=== PATIENT | female | born 1945 | race Hispanic/Latino ===

== ENCOUNTER 2022-05-19 09:13 | Observation (INO) | payer OTHER ==
[2022-05-19 10:08] LABS: #Eosinphils 0.2 10x3/uL (0.0-0.5); #Monocytes 0.6 10x3/uL (0.0-1.1); #Neutrophils 4.6 10x3/uL (1.5-8.4); %Basophils 0.4 % (0.0-2.0); %Eosinophils 2.8 % (0.0-6.0); %Lymphocytes 23.6 % (18.0-47.0); %Monocytes 8.5 % (0.0-10.0); %Neutrophils 64.4 % (40.0-75.0); Hemoglobin 13.2 g/dL (12.0-15.5); Mean Corpuscular HGB CONC 34.1 g/dL (32.0-36.0); Mean Corpuscular Hemoglobin 32.4 pg (27.0-33.0); Mean Corpuscular Volume 95.1 fl (81.6-98.3); Mean Platelet Volume 9.3 fl (7.4-10.4); Platelet Count 206 10x3/uL (150-450); Red Blood Cell (RBC) Count 4.07 10x6/uL (3.90-5.03); White Blood Cell (WBC) Count 7.2 10x3/uL (3.5-10.5)
[2022-05-19 10:10] LABS: Bilirubin Neg (Negative); Blood, Urine Negative (Negative); Clarity Clear (Clear); Glucose, Urine (Dipstick) Normal (Negative); Ketone, Urine Negative (Negative); Leukocyte Negative (Negative); Nitrite Negative (Negative); Protein, Urine (Dipstick) Negative (Neg-Trace); Urobilinogen Normal mg/dL (Less than 2); pH, Urine 6.5 (5.0-9.0)
[2022-05-19 10:16] LABS: Amphetamine Not Detected (NotDetected); Barbiturates Screen Not Detected (NotDetected); Benzodiazepine Screen Not Detected (NotDetected); Cocaine Metabolite Screen Not Detected (NotDetected); Methadone Not Detected (NotDetected); Methamphetamine Not Detected (NotDetected); Opiate Screen Not Detected (NotDetected); Oxycodone Screen Not Detected (NotDetected); Phencyclidine (PCP) Not Detected (NotDetected); THC/Cannabinoid Screen Not Detected (NotDetected); Tricyclic Screen Not Detected (NotDetected)
[2022-05-19 10:19] LABS: PTT 24.5 sec (22.0-33.0); Prothrombin Time 10.4 sec (9.5-12.1)
[2022-05-19 10:25] LABS: Acetaminophen Less than 10.0 mcg/mL (10.0-30.0); Alcohol Less than 10 mg/dL (Less than 10); CK (CPK) 68 U/L (29-168); Salicylate Less than 8.0 mg/dL (15.0-30.0)
[2022-05-19 10:28] LABS: ALT (SGPT) 10 U/L (8-55); AST (SGOT) 18 U/L (5-34); Albumin 3.9 g/dL (3.4-4.8); Alkaline Phosphatase 76 U/L (40-110); Anion Gap 16 mmol/L (10-20); BUN (Urea Nitrogen) 19 mg/dL (9.8-20.1); Bilirubin, Total 0.5 mg/dL (0.2-1.2); Calc. Creatinine Clearance 0 mL/min (70-130); Calcium 9.3 mg/dL (7.8-10.44); Carbon Dioxide 25 mmol/L (23-31); Chloride 104 mmol/L (98-107); Estimated GFR 91; Globulin 2.8 g/dL (2.4-3.5); Glucose 107 mg/dL (83-110); Lipase 55 U/L (8-78); Potassium 4.1 mmol/L (3.5-5.1); Protein, Total 6.7 g/dL (5.8-8.1); Sodium 141 mmol/L (136-145)
[2022-05-19] MEDS ORDERED: Aspirin 325 MG TAB ONE (12:27)
[2022-05-19] MEDS ORDERED: Ondansetron PF 4 MG/2 ML Vial IVP PRN (12:45)
[2022-05-19] MEDS ORDERED: Acetaminophen 650 MG Suppository PR PRN (12:45)
[2022-05-19] MEDS ORDERED: Ondansetron ODT 4 MG TAB PO PRN (12:45)
[2022-05-19] MEDS ORDERED: Enoxaparin Sodium 40 MG/0.4 ML SYRINGE SC SCH (12:45)
[2022-05-19] MEDS ORDERED: Labetalol HCl 100 MG/20 ML VIAL SLOW IVP PRN (12:45)
[2022-05-19] MEDS ORDERED: Guaifenesin DM 100-10/5 ML UDCUP PO PRN (12:45)
[2022-05-19 13:13] LABS: SARS-CoV-2 NAA Rapid Test Not Detected (NotDetected)
[2022-05-19 13:14] LABS: Troponin I Less than 0.010 ng/mL (< 0.028)
[2022-05-19] MEDS ORDERED: Enoxaparin Sodium 40 MG/0.4 ML SYRINGE ONE (14:38)
[2022-05-19 16:25] VITALS: BMI 24.6
[2022-05-19 16:43] LABS: Troponin I Less than 0.010 ng/mL (< 0.028)
[2022-05-19] MEDS ORDERED: Rosuvastatin 20 MG TAB PO SCH (21:00)
[2022-05-19] MEDS: Famotidine 20 MG TAB PO SCH (22:03)
[2022-05-19] MEDS: Acetaminophen 325 MG TAB PO PRN (22:17)
[2022-05-20 04:30] LABS: Cardiac Risk 3.2 (Less than 4.5)
[2022-05-20] MEDS: Famotidine 20 MG TAB PO SCH (08:35)
[2022-05-20] MEDS ORDERED: Enoxaparin Sodium 40 MG/0.4 ML SYRINGE SC SCH (09:00)
[2022-05-20] MEDS ORDERED: Hydrochlorothiazide 25 MG TAB PO SCH (09:00)
[2022-05-20] MEDS ORDERED: Aspirin 81 mg Enteric Coated Tablet PO SCH (09:00)
[2022-05-20] MEDS: Acetaminophen 325 MG TAB PO PRN (09:20)
[2022-05-20 12:38] VITALS: TEMP 98.7
[2022-05-20 13:19] LABS: Hemoglobin A1c 5.5 % (4.0-6.0)
[2022-05-20 15:23] VITALS: BP 155/88
[2022-05-20] MEDS ORDERED: Topiramate 25 MG TAB PO SCH (21:00)
[2022-05-20] MEDS ORDERED: Atorvastatin Calcium 40 MG TAB PO SCH (21:00)
[2022-05-20] MEDS ORDERED: Gabapentin 300 MG CAP PO SCH (21:00)
[2022-05-21 13:37] LABS: Hematocrit 37.6 % (34.0-46.6); RBC Folate Test Component 1173 ng/mL (>498)
== END 2022-05-20 15:55 | disposition home or self-care (01) ==
LOC: CSHERS 09:13 → INTOOBSV 14:52 → CSHERHOLD 14:52 → CSHTELE 15:35
PROVIDERS: ADMIT Internal Medicine; ATTEND Internal Medicine
DX: G45.9 Transient cerebral ischemic attack, unspecified (principal); R51.9 Headache, unspecified; E11.9 Type 2 diabetes mellitus without complications; I10 Essential (primary) hypertension; E78.1 Pure hyperglyceridemia; Z86.73 Personal history of transient ischemic attack (TIA), and cerebral infarction without residual deficits; Z79.1 Long term (current) use of non-steroidal anti-inflammatories (NSAID); Z79.84 Long term (current) use of oral hypoglycemic drugs; Z79.899 Other long term (current) drug therapy; Z20.822 Contact with and (suspected) exposure to COVID-19
CPT/HCPCS: 36415; 36416; 51701; 70450; 70551; 71045; 80053; 80061; 80306; 80307; 81003; 82550; 82607; 82747; 83036; 83690; 84443; 84484; 85014; 85025; 85610; 85652; 85730; 93005; 93306; 93880; 94760; 96372; G0378; J1650; U0002

== ENCOUNTER 2022-10-20 09:33 | Outpatient (CLI) | payer OTHER | END 2022-10-20 09:34 | disposition home or self-care (01) | LOC: CSHRAD 09:33 | PROVIDERS: ATTEND Nurse Practitioner Adult Health | DX: M25.511 Pain in right shoulder (principal); M19.011 Primary osteoarthritis, right shoulder ==